=== PATIENT | female | born 1970 | race Caucasian/White ===

== ENCOUNTER → 2019-07-02 | Outpatient (CLI) | payer OTHER ==
[~2019-07-02] MED LIST: CYCLOBENZAPRINE10 MG PO; HYDROCODONE/APAP PO; IBUPROFEN 800800 M1 PO; NABUMETONE 500500 M1 PO; NAPROSYN500 MG PO; NORCO 10-325 T1 EACH PO; NORCO 5-325 TA1 EACH PO; RELAFEN500 MG PO; TIZANIDINE HCL 22 M1 PO; TRAMADOL 50 MG50 MG PO
== END ==
LOC: M.MRI 17:00
DX: M47.812 Spondylosis without myelopathy or radiculopathy, cervical region (principal); M50.21 Other cervical disc displacement, high cervical region; M48.02 Spinal stenosis, cervical region; M25.78 Osteophyte, vertebrae

== ENCOUNTER → 2019-12-03 | Outpatient (CLI) | payer OTHER ==
[~2019-12-03] MED LIST changes: +CYMBALTA30 MG PO; +NEURONTIN 300300 M1 PO
--- NOTE | ~2019-12-03 | PAINCON ---
[address] [address] PAIN MANAGEMENT CONSULTATION Name: PUNE[facility] STORY Room: [facility]#: [id number] Admission: 12/03/19 Attend Phys: Ronan Barber MD Discharge: Date of : 66 Report #: [id number] THIS REPORT FOR: //name// cc: Eryn Ferguson MD, Sarah N. MD ~ THIS REPORT FOR: //name// CC: Ronan Ferguson DATE OF SERVICE: 12/03/2019 CHIEF COMPLAINT: Neck pain. HISTORY: The patient is a 49-year-old female who has been referred to the pain clinic for evaluation and treatment. The patient has had problems with her neck in the past. As a result of the pain and discomfort she underwent surgery in 2013. She states that she had a foraminotomy. She is now experiencing some pain and discomfort in the right arm area. Pain is radiating down into the right arm, into her hand and involves the ring and middle finger. She does have some perception of some weakness in the right hand. She has tried medications in the past. She has used tramadol without much benefit. She has used Badger in the past and uses it ____. She has also used the muscle relaxant. She does not have diabetes. She is not being treated for hypertension. She has had physical therapy in the past. She is not sure that this provided much long-term benefit. She has not had chiropractic treatment. She had an MRI in 06/2019, which showed findings similar to previous studies with a bulging disk at C6-C7. It indicated she had a right hemilaminectomy at C5-C6 and C6-C7. ALLERGIES: No known drug allergies. CURRENT MEDICATIONS: Hydrocodone 10/325 one p.o. t.i.d., ibuprofen 800 mg every 8 hours p.r.n., tizanidine 2 mg ____ p.o. t.i.d. p.r.n. spasms, Tramadol 50 mg every 8 hours p.r.n. PAST MEDICAL HISTORY: Stomach problems, irritable bowel, and anemia. PAST SURGICAL HISTORY: Sinus surgery in 2000, hysterectomy in 1998, and right hemilaminectomy at C5-C6 and C6-C7. SOCIAL HISTORY: She is a teacher. LABORATORY DATA: 1. MRI of the cervical spine dated 07/02/2019 indicates at C4-C5 there is a generalized disk bulging and posterior lateral uncovertebral joint osteophyte formation with bilateral posterior facet degenerative changes. [place] [id number] PAIN MANAGEMENT CONSULTATION Name: [facility]UNE[facility] STORY [id number] Admission: 12/03/19 Attend Phys: Ronan Barber MD Discharge: Date of : 66 Report #: [id number] slightly more eccentric toward the right, ATP dimensions of the thecal sac are 9 mm, mild spinal stenosis. There is severe right and mild left neural foraminal narrowing. Findings unchanged. 2. C5-C6, there is uncovertebral joint osteophyte formation with evidence of previous right hemilaminectomy. No abnormal enhancement is seen at this level. There is mild right-sided neural foraminal narrowing. Findings appear unchanged. 3. C6-C7, there is posterior lateral uncovertebral joint osteophyte formation with minimal bulging disk. This appears improved as compared with the prior study. No central spinal stenosis or significant neural foraminal narrowing seen, previous right hemilaminectomy. 4. C7-T1, no central spinal stenosis or neural foraminal narrowing. 5. X-ray of the spine, history of cervicalgia in 09/17/2019. Findings; disk space narrowing. Endplate sclerosis and small marginal osteophytes was evident at C3-C4, C4-C5, C5-C6, and C6-C7 levels. Paravertebral soft tissues are normal. Alignment is normal. Facet alignment is normal. Lateral masses of C1 and the dens are unremarkable. Flexion and extension views revealed preservation of alignment without abnormal AP translation. Impression; altered level degenerative disk disease, which when compared to 09/05/2019, exam is similar. No AP translation on flexion and extension. PAIN CLINIC ASSESSMENT AND PQRS: 1. 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 2. The patient is not being treated for rheumatoid arthritis. 3. Height 5 feet 5 inches, weight 131 pounds, BMI is 26.7. 4. Vital signs: Blood pressure is 130/100, respiratory rate 16, heart rate 65, saturation 95%, temperature 98.0. 5. Pain intensity score 5/10. 6. Fall history: The patient has not fallen in the last 3 months. 7. Blood thinner. The patient is not on a blood thinning medication. 8. Hypertension. The patient is not being treated for hypertension. 9. Opioids greater than 6 weeks. The patient has received opioids in the past. 10. Risk assessment tool, low for opioid use. 11. Functional assessment tool reviewed. 12. Recreational drug use: The patient denies. 13. Tobacco: The patient denied. 14. Alcohol. The patient denies frequent use of alcoholic beverages. PHYSICAL EXAMINATION: GENERAL: The patient is a well-developed, well-nourished white female. Appears her stated age. She is alert and oriented x 3. Her affect is appropriate. Speech is fluent. HEENT: Normocephalic, atraumatic. Extraocular eye muscles intact. Sclerae nonicteric. Mucous membranes are moist. NECK: Without adenopathy or JVD. The patient does have some decreased range of motion with flexion, extension, left and right bending. [place]ains [place] [id number] PAIN MANAGEMENT CONSULTATION Name: PUNEET STORY Reyes Room: [facility]#: [id number] Admission: 12/03/19 Attend Phys: Ronan Barber MD Discharge: Date of : 66 Report #: [id number] discomfort in the right shoulder with pain that is radiating down into the right arm, forearm with numbness and tingling in her index and middle finger. Has perception of weakness in this area. CARDIOVASCULAR: Stable. LUNGS: Clear. ABDOMEN: Nontender. EXTREMITIES: Lower extremity muscle strength judged to be 5/5 for the major muscle groups in the lower extremity. IMPRESSION: Cervical radiculopathy on the right side with pain and radiation down into the right shoulder and forearm. RECOMMENDATIONS: We discussed treatment options with the patient. Possibility of a cervical epidural steroid injection has been discussed. The patient has a well-healed scar in the area of her neck near the C5-C6 area. We have discussed the possibility of an injection. Given that COVID-19 is problematic, we may need to wait until we have been given the go ahead to proceed with a cervical epidural injection. The patient will continue with tramadol 50 mg 1 p.o. q.i.d. She will also continue with Badger 10 mg 1 p.o. t.i.d. The patient will continue with tizanidine 2 mg 1 p.o. t.i.d. as needed. We may consider the use of gabapentin. The patient will try gabapentin 300 mg 1 p.o. and increase this as she is able to tolerate it. We would like to thank you for letting us participate in her care. We hope she continues to improve. By: [id number]. Zack Barber MD /rachel
== END ==
LOC: M.PC 12-01 09:50
DX: M54.12 Radiculopathy, cervical region (principal); Z79.891 Long term (current) use of opiate analgesic

== ENCOUNTER → 2019-12-22 | Outpatient (CLI) | payer OTHER | END | disposition home or self-care (01) | LOC: M.PC 05:15 | DX: M54.12 Radiculopathy, cervical region (principal); G89.29 Other chronic pain ==

== ENCOUNTER → 2020-12-20 | Outpatient (CLI) | payer OTHER ==
[~2020-12-20] MED LIST changes: +AMITRIPTYLINE H10 M1 PO; +NEURONTIN300 MG PO
== END ==
LOC: M.PC 08:15
PROVIDERS: ATTEND Anesthesiology Pain Medicine
DX: M54.12 Radiculopathy, cervical region (principal); M25.511 Pain in right shoulder; Z87.19 Personal history of other diseases of the digestive system

== ENCOUNTER → 2021-03-07 | Outpatient (CLI) | payer OTHER | LOC: M.RAD 02-28 13:51 → M.MRI 07:18 → M.RAD 03-08 08:00 | PROVIDERS: ATTEND Nurse Practitioner | DX: M47.22 Other spondylosis with radiculopathy, cervical region (principal); M48.02 Spinal stenosis, cervical region; M25.78 Osteophyte, vertebrae ==